=== PATIENT | male | born 2000 | race Caucasian/White ===

== ENCOUNTER 2024-12-20 17:52 | Emergency (ER) | payer BC, SELFPAY ==
--- OUTSIDE RECORDS SUMMARY | 2024-12-20 18:37 | XMS_ITS | Clinical Summary ---
Author Organization [facility] Address [address] [place] [address]. [place] [address] [place] [address] Care Team Providers Care Director Family Name Role Phone Diane Guevara APRN Primary Care Provider [phone]- [phone] Allergies Active Allergy Reactions Criticality Noted Date Comments Ranitidine Hives 07/02/2019 Medications buPROPion XL (WELLBUTRIN XL) 300 MG 24 hr tabletIndication s:Depression, unspecified depression type,Anxiety Take 1 tablet (300 mg total) by mouth daily. 30 tablet 3 08/26/2024 Active Active Problems Problem Noted Date Diagnosed Date Primary insomnia 01/13/2024 Anxiety 01/13/2024 Depression, unspecified depression type 01/13/20 24 Tinnitus of both ears 01/13/2024 Immunizations Name Administration Dates Next Due Dtap 05/15/2005, 1,02/27/2000,01/07/2000, 999 Hepatitis B Pediatric 03/03/2001,09/02/2000,05/24 Hib 01/03/2001,02/27/2000,01/07/2000 ,1999 MMR 05/15/2005,01/03/2001 Menactra 03/18/2017,06/28/2014 Pneumococcal (Prevnar 7) 03/03/2001,01/03/2001 Polio IPV (Ipol) 05/15/2005,03/03/2001, 0,1999 Tdap (Generic) 06/28/2014,04/13/2013 Varicella Vaccine 06/23/2010,08/30/2002 Family History Medical History Relation Comments COPD Maternal Grandfather Cancer Maternal Grandfather Diabetes Paternal Grandmother Relation Status Comments Maternal Grandfather Paternal Grandmother Social History Tobacco Use Types Packs/Day Years Used Date Smoking Tobacco: Former Cigarettes 0.3 5 Pipe Smokeless Tobacco: Never Tobacco Cessation:Counseling Given: Not Answered Comments:Almost a full year tobacco free Alcohol Use Standard Drinks/Week Comments Yes 0 (1 standard drink = 0.6 oz pure alcohol) Never really kept track of my consumption AUDIT-C Answer Date Recorded Frequency of Alcohol Consumption Never 07/02/2019 Average Number of Drinks Not on file 019 Frequency of Binge Drinking Not on file 07/2019 PHQ-2 Answer Date Recorded Patient Health Questionnaire-2 Score 4 04/16/2024 Sex and Gender Information Value Date Recorded Sex Assigned at Not on file Legal Sex Male 3:55 PM CDT Gender Identity Not on file Sexual Orientation Not on file Last Filed Vital Signs Vital Sign Reading Time Taken Comments Blood Pressure 111/62 04/16/2024 4:08 PM CDT Pulse 73 04/16/2024 4:08 PM CDT Temperature 36.7 ??C (98 ??F) 04/16/2024 4:08 PM CDT Respiratory Rate 18 04/16/2024 4:08 PM CDT Oxygen Saturation 98% 04/16/2024 4:08 PM CDT Inhaled Oxygen Concentration - - Weight 79.8 kg (176 lb) 04/16/2024 4:08 PM CDT Height 162.6 cm (5' 4 ) 04/16/2024 4:08 PM CDT Body Mass Index 30.21 04/16/2024 4:08 PM CDT Plan of Treatment Upcoming Encounters Date Type Department Care Team (Late st Contact Info) Description 01/20/2025 8:20 AM ENGINE REPAIR SUPERVISOR Office Visit [facility] Medicine [place] [facility] [address] [place] [address] Diane Guevara APRN [phone] [facility] [address] [place] [id number] Health Maintenance Due Date Last Done Comments HPV Vaccines (1 - Male 3-dose series) 2014 Hepatitis C 2017 DTaP, Tdap and Td Vaccines (8 - Td or Tdap) 06/28/2024 06/28/2014, 04/13/2013, 05/15/2005, Additional history exists COVID-19 Vaccine (1 - 2023- season) 2024 Influenza Adult (#1) 2024 PHQ-2 (Physician [place]) 11/24/2024 04/16/2024 Annual Physical 01/13/2025 01/13/2024 Hepatitis B Vaccines Completed 03/03/2001, 09/02/2000, 06/02/2000 Pneumococcal Vaccine: Pediatrics (0 to 5 Years) and At-Risk Patients (6 to 64 Years) Aged Out 03/03/2001, 01/03/2001 No longer eligibl e based on patient's age to complete this topic Meningococcal Vaccine Completed 03/18/2017, 014 Meningococcal B Vaccine Aged Out No l onger eligible based on patient's age to complete this topic RSV Immunizations Under 20 Months Aged Out No longer eligible based on patient's age to complete this topic Insurance [facility] Care Teams Director Family Relationship Specialty Start Date End Date Diane Guevara APRN [id number] [facility] [address] [place] [address] PCP - General NURSE PRACTITIONER 01/03/23
--- OUTSIDE RECORDS SUMMARY | 2024-12-20 18:37 | XMS_ITS | Encounter Summary ---
Author Organization [facility] Address [address] [place] [address]. [place], [place] [id number] [place] [address] Care Team Providers Care Specialty Cook Name Role Phone Diane Guevara APRN Primary Care Provider [phone]- [phone] Encounter Details Date Type Department Care Team (Late Contact Info) Description 04/10/2023 uberlife Message Enc [facility] Medicine [facility] [id number] [place] [phone] [facility] Provider appt Social History Tobacco Use Types Packs/Day Years Used Date Smoking Tobacco: Former Electronic Cigarettes Smokeless Tobacco: Never Alcohol Use Standard Drinks/Week Comments No 0 (1 standard drink = 0.6 oz pur e alcohol) AUDIT-C Answer Date Recorded Frequency of Alcohol Consumption Never 07/02/2019 Average Number of Drinks Not on file 019 Frequency of Binge Drinking Not on file 07/2019 PHQ-2 Answer Date Recorded Patient Health Questionnaire-2 Score 4 01/27/2023 Sex and Gender Information Value Date Recorded Sex Assigned at Not on file Legal Sex Male 3:55 PM CDT Gender Identity Not on file Sexual Orientation Not on file documented as of this encounter Plan of Treatment Upcoming Encounters Date Type Department Care Team (Late Contact Info) Description 01/20/2025 8:20 AM CHIEF REVENUE OFFICER Office Visit [facility] Internal [address] [phone] Diane Guevara APRN [address] [place] [address] [place] [address] [place] [address] documented as of this encounter Visit Diagnoses Not on filedocumented in this encounter Additional Health Concerns Assessment Noted Time PHQ-9 Depression Total Score: 17 023 10:21 AM CHIEF REVENUE OFFICER documented as of this encounter Care Teams Specialty Cook Relationship Specialty Start Date End Date Diane Guevara APRN [id number] [facility] [address] [place] [address] PCP - General NURSE PRACTITIONER 01/03/23 documented as of this encounter
[2024-12-20 19:27] VITALS: BP 139/67; PULSE 74; RESP 18; TEMP 37.2; O2SAT 100
--- NOTE | 2024-12-20 19:41 | ED.ABDPAIN ---
HPI - Abdominal Pain General Chief Complaint: Abdominal Pain Stated Complaint: Abdominal Pain Source: patient, RN notes reviewed and old records reviewed Mode of arrival: ambulatory Limitations: no limitations History of Present Illness HPI narrative: Patient presents with complaints of burning epigastric pain that has been intermittent for 7-10 days. He has tried medications such as Tums. He has not modified his diet. Does admit that he does not drink much alcohol, but does drink an excessive amount of coffee. He denies any fever, chills, sweats. He is symptom free on arrival. He voices no other concerns or complaints at this time Related Data Home Medications ?Medication ?Instructions ?Recorded ?Confirmed ?Last Taken ?Type bupropion HCl 150 mg 24 hr tablet, mg PO 12/20/24 Unknown History extended release Allergies Allergy/AdvReac Type Severity Reaction Status Date / Time ranitidine (From Zantac) Allergy Mild Hives Verified 12/20/24 20:56 Review of Systems Review of Systems: All systems reviewed & are unremarkable except as noted in HPI and below Constitutional: Constitutional: Reports no additional constitutional complaints ENT: Reports system reviewed and no additional complaints, except as documented Cardiovascular: Cardiovascular: Reports no additional cardiovascular complaints Respiratory: Respiratory: Reports no additional respiratory complaints Gastrointestinal: Gastrointestinal: Reports no additional gastrointestinal complaints and Reports heartburn PMFSH Comments At the time of my signature, I reviewed and agree with the nursing past medical, surgical, social, and family history. There is no relevant family history pertinent to the patient complaint. Exam Const: General: cooperative, no acute distress, alert and awake Orientation/consciousness: oriented to person, oriented to place and oriented to time HENMT: Head: normal to inspection Mouth: Yes moist mucous membranes Resp: Effort & Inspection: normal respiratory effort and able to speak in complete sentences Auscultation: clear to auscultation bilaterally, no crackles, no rales, no rhonchi and no wheezes Cardio: Palpation: normal PMI Rate: regular rate Rhythm: regular rhythm Heart sounds: S1 normal heart sound present and S2 normal heart sound present GI: GI Palp: Yes Soft to palpation, No Tenderness to palpation present (GI) and No Guarding due to palpation present (GI) Auscultation: normal bowel sounds Neuro: General: oriented to person, oriented to place and oriented to time Cranial nerves: Yes CN's II-XII intact bilaterally Psych: Appearance: grossly normal Thought process: Normal thought process present Insight: Good insight present (Psych) Judgement: Good judgement present (Psych) Course Course Level of Care: Express Care Visit Vital Signs Vital signs: Vital Signs Temperature 98.9 F 12/20/24 19:27 Pulse Rate 74 12/20/24 19:27 Respiratory Rate 18 12/20/24 19:27 Blood Pressure 139/67 12/20/24 19:27 Pulse Oximetry 100 12/20/24 19:27 Oxygen Delivery Room Air 12/20/24 19:27 Temperature 98.9 F 12/20/24 19:27 Pulse Rate 74 12/20/24 19:27 Respiratory Rate 18 12/20/24 19:27 Blood Pressure 139/67 12/20/24 19:27 Pulse Oximetry 100 12/20/24 19:27 Oxygen Delivery Room Air 12/20/24 19:27 Reviewed MDM - Abdominal Pain MDM Narrative Medical decision making narrative: patient with complaints of heartburn type pain intermittently. Diet modifications and medications discussed. Patient nontoxic appearing, stable for discharge home. Recommend primary care follow-up, emergency department for new or worse symptoms. Discharge instructions reviewed with patient, as well as provided in writing per nursing staff. The instructions also include specific and strict return/GO TO THE ER as well as f/u information. All questions have been answered, and the patient deny any further questions with discharge and discharge plan. Some parts of this dictation were generated by voice recognition software and may contain typographical and/or grammatical inaccuracies. Differential Diagnosis Differential diagnosis: Likely abdominal pain, gastroenteritis and other (Dyspepsia) Medical Records Attestation: I reviewed the patient's medical records. Discharge Plan Discharge Clinical Impression: Heartburn Patient Disposition: Home, Self-Care Condition: Stable Instructions: Antibiotic Form, GERD (Gastroesophageal Reflux Disease) (ED) Additional Instructions: take medications as prescribed. Follow with primary care provider. Emergency department for new or worse symptoms Patient Language: Bruneian Prescriptions: New famotidine [Pepcid] 40 mg tablet 40 mg PO HS Qty: 30 0RF No Action bupropion HCl 150 mg tablet extended release 24 hr PO Follow-up/Referrals: Paola,Diane Temple APRN [Primary Care Provider] - 2 Weeks Time of Disposition: 19:45
== END 2024-12-20 20:01 | disposition home or self-care (01) ==
PROVIDERS: Emergency Provider Nurse Practitioner Family; PCP Registered Nurse
DX: R12 Heartburn (principal)
CPT/HCPCS: 99203; G0463